=== PATIENT | female | born 1980 | race Caucasian/White ===

== ENCOUNTER 2017-06-20 05:48 | Day surgery (SDC) | payer OTHER ==
[2017-06-20] MEDS ORDERED: Ketamine HCl 50 MG/ML IV ONE (05:49)
[2017-06-20] MEDS ORDERED: DIPRIVAN 200 MG/20 ML IV ONE (05:49)
[2017-06-20] MEDS ORDERED: Lactated Ringers 1,000 ML IV SCH (06:30)
[2017-06-20 09:16] VITALS: O2SAT 97
[2017-06-20 09:52] VITALS: BP 121/94; PULSE 103
--- NOTE | 2017-06-20 11:43 | OP ---
SURGERY DATE/TIME: 06/20/2017814 PREOPERATIVE DIAGNOSIS: Epigastric pain. POSTOPERATIVE DIAGNOSIS: Hiatal hernia and mild gastritis. PROCEDURE: Esophagogastroduodenoscopy with biopsy. SURGEON: Dr. Gu. ANESTHESIA: Medications were given by the anesthesia department. BRIEF HISTORY: The patient is a 37 year old white female on proton pump inhibitor medications without improvement in epigastric pain. The patient previously had her gallbladder removed. She reports the pain radiates round the left side of her abdomen and through to her back. The patient was felt to need to have endoscopic evaluation. She was appraised of the risks of the procedure including the risk of perforation, phlebitis, untoward reaction to medication, bleeding and missed lesions. The patient verbalized her understanding and desired to have the procedure performed. DESCRIPTION OF PROCEDURE: The patient was given the medications by the anesthesia department. She had continuous pulse oximetry, ECG monitoring, intermittent blood pressure monitoring and tidal CO2 monitoring during the examination. She was placed in the left lateral decubitus position. A bite block was placed and the flexible Olympus gastroscope was used to intubate the oropharynx. The scope was easily passed into the esophagus which was which appeared to be normal throughout its length. The stomach was entered where normal gastric rugal folds were seen and these distended nicely with insufflation of air. The scope was passed along the greater curvature of the stomach to the antrum. The pylorus was encountered and intubated. Duodenum inspected and found to be normal. The scope withdrawn towards the stomach. Again, a retroflex view was obtained of the lesser curvature, fundus and cardia regions of the stomach and these appeared normal other than the presence of hiatal hernia. The scope was then redirected towards the antrum and biopsies were obtained to rule out the presence of Helicobacter pylori-type organisms. The scope was then removed from the patient who tolerated the procedure well and was sent back to outpatient recovery in good condition.
== END 2017-06-20 09:45 | disposition home or self-care (01) ==
LOC: SDC 05:48
PROVIDERS: ATTEND Family Medicine
PROC: 0DB78ZX Excision of Stomach, Pylorus, Via Natural or Artificial Opening Endoscopic, Diagnostic (ICD-10-PCS; principal; 2017-06-20)
DX: K44.9 Diaphragmatic hernia without obstruction or gangrene (principal); K29.70 Gastritis, unspecified, without bleeding; R10.13 Epigastric pain
CPT/HCPCS: 00731; J2704